=== PATIENT | male | born 1980 | race Caucasian/White ===

== ENCOUNTER 2021-02-28 11:56 | Emergency (ER) | payer BC ==
[2021-02-28] MEDS ORDERED: Ondansetron 4 MG/2 ML SDV IVPUSH ONE (12:15)
[2021-02-28] MEDS ORDERED: Sodium Chloride 0.9% 1,000 ML IV STA (12:15)
[2021-02-28] MEDS ORDERED: HYDROmorphone 0.5 MG/0.5 ML Syringe IVPUSH ONE ×2 (12:15→12:57)
--- NOTE | 2021-02-28 12:31 | EDM.PDOC ---
ED HPI GENERAL MEDICAL PROBLEM - General Chief Complaint: Gastrointestinal Problem Stated Complaint: CHOKED/ ABDOMINAL PAIN/VOMITING BLOOD Time Seen by Provider: 02/28/21 12:10 Source of Information: Reports: Patient, RN Notes Reviewed History Limitations: Reports: No Limitations - History of Present Illness INITIAL COMMENTS - FREE TEXT/NARRATIVE: Patient is a 41-year-old male presenting to the emergency department with complaints of epigastric pain as well as an episode of vomiting blood prior to arrival. He reports that he was eating a piece of bun and a "burnt" from bar [employer] when he had an episode of choking. States he coughed for approximately 30 minutes. He has been able to swallow liquids since the time of the occurrence. Reports that prior to coming to ER he had approximately "5 mouthfuls "of blood that he vomited up. He has had episodes of choking on dry food frequently but has never been evaluated for this. He often chokes if he eats bread or any othe r dry substance. Denies feeling nauseous at this time but does have intense epigastric discomfort. Epigastric Pain Score (Numeric/FACES): 8 - Related Data Allergies Allergy/AdvReac Type Severity Reaction Status Date / Time No Known Allergies Allergy Verified 02/28/21 12:06 Home Meds: Home Meds . [No Known Home Meds] 05/23/19 [History] Past Medical History - Past Health History Medical/Surgical History: Denies Medical/Surgical History Cardiovascular History: Reports: None Respiratory History: Reports: None Gastrointestinal History: Reports: None Genitourinary History: Reports: None Musculoskeletal History: Reports: Fracture Neurological History: Reports: None Psychiatric History: Reports: None Endocrine/Metabolic History: Reports: None Hematologic History: Reports: None Immunologic History: Reports: None Oncologic (Cancer) History: Reports: None Dermatologic History: Reports: None - Infectious Disease History Infectious Disease History: Reports: None - Past Surgical History Head Surgeries/Procedures: Reports: None HEENT Surgical History: Reports: Oral Surgery Musculoskeletal Surgical History: Reports: Arthroscopic Procedure Other Musculoskeletal Surgeries/Procedures:: Surgery on left knee to repair MCL/ACL and surgery to fix fractured left leg. Social & Family History - Tobacco Use Tobacco Use Status *Q: Never Tobacco User - Caffeine Use Caffeine Use: Reports: Coffee, Energy Drinks, Soda - Recreational Drug Use Recreational Drug Use: No ED ROS GENERAL - Review of Systems Review Of Systems: Comprehensive ROS is negative, except as noted in HPI. ED EXAM, GI/ABD - Physical Exam Exam: See Below Exam Limited By: No Limitations General Appearance: Alert, Mild Distress Respiratory/Chest: No Respiratory Distress, Lungs Clear, Normal Breath Sounds, No Accessory Muscle Use, Chest Non-Tender Cardiovascular: Normal Peripheral Pulses, Regular Rate, Rhythm, No Edema, No Gallop, No JVD, No Murmur, No Rub GI/Abdominal Exam: Normal Bowel Sounds, Soft, No Organomegaly, No Distention, No Abnormal Bruit, No Mass, Pelvis Stable, Tender (Mild epigastric) Neurological: Alert, Oriented, CN II-XII Intact, Normal Cognition, Normal Gait, Normal Reflexes, No Motor/Sensory Deficits Psychiatric: Normal Affect, Normal Mood Skin Exam: Warm, Dry, Intact, Normal Color, No Rash Course - Vital Signs Last Recorded V/S: Last Vital Signs Temp 98.2 F 02/28/21 12:04 Pulse 69 02/28/21 12:04 Resp 16 02/28/21 12:04 BP 139/96 H 02/28/21 12:04 Pulse Ox 96 02/28/21 12:04 - Orders/Labs/Meds Orders: Active Orders 24 hr Category Date Time Status Chest Abdomen Pelvis w Cont [CT] Stat Exams 02/28/21 12:14 Taken Sodium Chloride 0.9% [Normal Saline] 1,000 ml Med 02/28/21 12:15 Active IV NOW Medication Orders Sodium Chloride (Normal Saline) 1,000 mls @ 150 mls/hr IV NOW STA Stop: 02/28/21 18:54 Last Admin: 02/28/21 12:21 Dose: 150 mls/hr Documented by: PRICE Labs: Laboratory Tests 02/28/21 02/28/21 Range/Units 12:15 12:15 WBC 5.23 (4.23-9.07) K/mm3 RBC 4.86 (4.63-6.08) M/mm3 Hgb 14.8 (13.7-17.5) gm/dl Hct 43.8 (40.1-51.0) % MCV 90.1 (79.0-92.2) fl MCH 30.5 (25.7-32.2) pg MCHC 33.8 (32.2-35.5) g/dl RDW Std Deviation 40.8 (35.1-43.9) fL Plt Count 232 (163-337) K/mm3 MPV 10.4 (9.4-12.3) fl Neut % (Auto) 51.7 (34.0-67.9) % Lymph % (Auto) 37.1 (21.8-53.1) % Marion % (Auto) 7.5 (5.3-12.2) % Eos % (Auto) 2.7 (0.8-7.0) Baso % (Auto) 0.8 (0.1-1.2) % Neut # (Auto) 2.71 (1.78-5.38) K/mm3 Lymph # (Auto) 1.94 (1.32-3.57) K/mm3 Marion # (Auto) 0.39 (0.30-0.82) K/mm3 Eos # (Auto) 0.14 (0.04-0.54) K/mm3 Baso # (Auto) 0.04 (0.01-0.08) K/mm3 Sodium 141 (136-145) mEq/L Potassium 3.4 L (3.5-5.1) mEq/L Chloride 104 (98-107) mEq/L Carbon Dioxide 25 (21-32) mEq/L Anion Gap 15.4 H (5-15) BUN 12 (7-18) mg/dL Creatinine 1.2 (0.7-1.3) mg/dL Est Cr Clr Drug Dosing 87.15 mL/min Estimated GFR (MDRD) > 60 (>60) mL/min BUN/Creatinine Ratio 10.0 L (14-18) Glucose 107 H (70-99) mg/dL Calcium 8.5 (8.5-10.1) mg/dL Total Bilirubin 1.5 H (0.2-1.0) mg/dL AST 21 (15-37) U/L ALT 32 (16-63) U/L Alkaline Phosphatase 102 (46-116) U/L Total Protein 7.7 (6.4-8.2) g/dl Albumin 4.1 (3.4-5.0) g/dl Globulin 3.6 gm/dL Albumin/Globulin Ratio 1.1 (1-2) Meds: Medications Generic Name Dose Route Start Last Admin Trade Name Freq PRN Reason Stop Dose Admin Sodium Chloride 1,000 mls @ 150 mls/hr 02/28/21 12:15 02/28/21 12:21 Normal Saline IV 02/28/21 18:54 150 mls/hr NOW STA Administration Discontinued Medications Generic Name Dose Route Start Last Admin Trade Name Ceci PRN Reason Stop Dose Admin Al Hydroxide/Mg Hydroxide 30 0 ml 02/28/21 14:20 02/28/21 14:31 ml/ Lidocaine HCl 15 ml PO 02/28/21 14:21 45 ml ONETIME ONE Administration Famotidine 20 mg 02/28/21 14:20 02/28/21 14:30 Famotidine 20 Mg/2 Ml Sdv IVPUSH 02/28/21 14:21 20 mg ONETIME ONE Administration Hydromorphone HCl 0.5 mg 02/28/21 12:15 02/28/21 12:22 Hydromorphone 0.5 Mg/0.5 Ml Syringe IVPUSH 02/28/21 12:16 0.5 mg ONETIME ONE Administration Hydromorphone HCl 0.5 mg 02/28/21 12:57 02/28/21 13:09 Hydromorphone 0.5 Mg/0.5 Ml Syringe IVPUSH 02/28/21 12:58 0.5 mg ONETIME ONE Administration Ondansetron HCl 4 mg 02/28/21 12:15 02/28/21 12:21 Ondansetron 4 Mg/2 Ml Sdv IVPUSH 02/28/21 12:16 4 mg ONETIME ONE Administration - Re-Assessments/Exams Free Text/Narrative Re-Assessment/Exam: Patient is a 41-year-old male presenting to the emergency department for evaluation with regards to having what he describes as a choking episode with difficulty swallowing bread and the meat that he was eating. He reports that he has had episodes similar to this quite frequently. Likely every day however, this episode was much worse than normal. He reports that last about 30 minutes. Prior to come to ER he vomited up some blood. He now complains of feeling gassy and having epigastric discomfort. He is not on a PPI, however states that he has thought about it before he does report history of acid reflux when lying flat. He has never been evaluated for his difficulty swallowing. Exam is significant for epigastric tenderness but is otherwise unremarkable. I have ordered blood work, CT scan of the chest abdomen pelvis to ensure he does not have an esophageal perforation, IV fluids of NS at 150 mils per hour, Zofran 4 mg IV, and Dilaudid 0.5 mg IV. 02/28/21 14:30 CT scan of the chest abdomen pelvis shows diffuse thickening of the distal esophagus questionable for possible esophagitis. It is otherwise unremarkable. There is no evidence of esophageal perforation. Discussed that the bleeding that he had was likely related to the trauma of choking and that he may have Yolanda-Guallpa tears but that there is no evidence of esophageal perforation. He has had no further emesis during his time in ER. I have ordered a GI cocktail as well as Pepcid 20 mg IV. Recommended he begin taking omeprazole 20 mg daily. He should have it very bland diet for the next few days to allow the esophagus to heal. I will send a referral to general surgeon, Dr. eVliz, for evaluation and possible EGD. He is in agreement with this plan. Discharge instructions as documented. Departure - Departure Time of Disposition: 14:32 Disposition: Home, Self-Care 01 Condition: Good Clinical Impression: GERD with esophagitis Qualifiers: Esophagitis bleeding: unspecified whether hemorrhage Qualified Code(s): K21.00 - Gastro-esophageal reflux disease with esophagitis, without bleeding - Discharge Information *PRESCRIPTION DRUG MONITORING PROGRAM REVIEWED*: No *COPY OF PRESCRIPTION DRUG MONITORING REPORT IN PATIENT MIGUEL ANGEL: No Instructions: Food Choices for Gastroesophageal Reflux Disease, Adult, Gastroesophageal Reflux Disease, Adult, [id number] Referrals: Mina Veliz MD [Physician] - Forms: ED Department Discharge Additional Instructions: You were seen in the emergency department today for evaluation of epigastric pain after choking and having an episode of vomiting blood at home. Work-up included blood work and a CT scan of your chest abdomen pelvis. Blood work was found to be overall normal. CT scan showed thickening of your distal esophagus likely due to gastroesophageal reflux disease with esophagitis with esophagitis. There is no evidence of esophageal perforation. The bleeding that you had was likely due to the trauma of choking. While in the ER, you received IV fluids, nausea and pain medications, a GI cocktail, and pepcid. You should begin taking omeprazole 20 mg daily. Your diet for the next few days should be soft and bland. Avoid foods that are hard, spicy, or acidic. A referal has been sent to general surgeon, Dr. Veliz. Recommend that you contact his office on Monday to set up a follow-up appointment. If you should experience any new or worsening symptoms of concern, please do not hesitate to return to the emergency department for reevaluation. Sepsis Event Note (ED) - Evaluation Sepsis Screening Result: No Definite Risk - Focused Exam Vital Signs: Vital Signs Temp Pulse Resp BP Pulse Ox 02/28/21 12:04 98.2 F 69 16 139/96 H 96 - My Orders Last 24 Hours: My Active Orders 02/28/21 12:14 Chest Abdomen Pelvis w Cont [CT] Stat 02/28/21 12:15 Sodium Chloride 0.9% [Normal Saline] 1,000 ml IV NOW - Assessment/Plan Last 24 Hours: My Active Orders 02/28/21 12:14 Chest Abdomen Pelvis w Cont [CT] Stat 02/28/21 12:15 Sodium Chloride 0.9% [Normal Saline] 1,000 ml IV NOW
[2021-02-28] MEDS ORDERED: Alum Hydrox/Mag Hydrox/Simeth 30 ML, Lidocaine 2% 15 ML PO ONE ×2 (14:20)
[2021-02-28] MEDS ORDERED: Famotidine 20 MG/2 ML SDV IVPUSH ONE (14:20)
--- NOTE | 2021-03-01 08:16 | CT ---
CT chest Technique: Multiple axial sections were obtained from above the lung apices inferiorly through the lung bases. Intravenous contrast was utilized. Reconstructed coronal and sagittal images were obtained. Comparison: No prior chest imaging is available. Findings: Esophageal wall thickening is seen. Small hiatal hernia is noted. Findings most likely represent diffuse esophagitis. No pericardial thickening is seen. Thoracic aorta shows no aneurysm. Mediastinum and hilar regions show no adenopathy or mass. Lung window settings were reviewed which show no acute parenchymal change. Bone window settings were reviewed which show no acute osseous abnormality. Impression: 1. Findings suspicious for diffuse esophagitis as described above. 2. Other portions of the CT chest study are unremarkable. Diagnostic code #3 I agree with preliminary report from [facility], finalized on 02/28/21, 3:13 PM CDT, code 1 CT abdomen and pelvis Technique: Multiple axial sections were obtained from above the dome of the diaphragm inferiorly through the pubic symphysis. Intravenous contrast was utilized. Delayed images were also obtained through the bladder. Findings: Liver contains no focal abnormality. Spleen size is normal. Adrenal glands show no nodule. Pancreas shows no discrete abnormality. Adrenal glands show no nodule. Kidneys show symmetric contrast enhancement with no hydronephrosis or mass. Gallbladder contains no calcified gallstones. Abdominal aorta shows no aneurysm. No retroperitoneal adenopathy or mesenteric abnormalities are seen. Appendix is seen which is normal. No pelvic mass or adenopathy is appreciated. No free fluid or inflammatory change is seen. Delayed images show contrast within the distal right ureter and within the bladder. Bone window settings were reviewed which show minimal scattered degenerative change within the lumbar spine. No acute osseous abnormality is appreciated. Impression: 1. Nothing acute is seen on CT study of the abdomen and pelvis. Diagnostic code #1 I agree with preliminary report from [facility], finalized on 02/28/21, 3:13 PM CDT, code 1
== END 2021-02-28 14:54 | disposition home or self-care (01) ==
LOC: JD.ED 11:56
DX: K21.00 Gastro-esophageal reflux disease with esophagitis, without bleeding (principal)
CPT/HCPCS: 36415; 71260; 74177; 80053; 85025; 96374; 96375; 96376; 99285; A9270; J1170; J2405; J3490; J7030; 99284

== ENCOUNTER → 2021-03-25 | Day surgery (SDC) | payer BC ==
[~2021-03-25] MED LIST: Lactated Ringers 1,000 ML IV SCH; Lidocaine 1% 6 ML ONE; Lidocaine 1%/Sod Bicarbonate in NS 8.4% 1 ML Syringe IDERM PRN; Midazolam 1 MG/ML 2 ML SDV ONE; Propofol 200 MG/20 ML SDV ONE; Sodium Chloride 0.9% 10 ML Syringe FLUSH PRN
--- NOTE | 2021-03-25 06:17 | PCM.PREANE ---
Preanesthetic Assessment - Procedure Proposed Procedure: EGD - Anesthesia/Transfusion/Family Hx Anesthesia History: Prior Anesthesia Without Reaction Family History of Anesthesia Reaction: No Transfusion History: No Prior Transfusion(s) Intubation History: Unknown - Review of Systems General: No Symptoms Pulmonary: No Symptoms Cardiovascular: No Symptoms Gastrointestinal: Difficulty Swallowing Neurological: No Symptoms Other: Reports: None - Physical Assessment NPO Status Date: 03/24/21 NPO Status Time: 22:30 Vital Signs: 125/91 HR 68 RR 16 Sat 96 97.0 Height: 1.8 m Weight: 97.9 kg ASA Class: 2 Mental Status: Alert & Oriented x3 Dentition: Reports: Normal Dentition, Missing Tooth/Teeth, Caries Thyro-Mental Finger Breadths: 3 Mouth Opening Finger Breadths: 3 ROM/Head Extension: Full Lungs: Clear to Auscultation, Normal Respiratory Effort Cardiovascular: Regular Rate, Regular Rhythm - Allergies Allergies/Adverse Reactions: Allergies Allergy/AdvReac Type Severity Reaction Status Date / Time No Known Allergies Allergy Verified 03/24/21 16:44 - Blood Blood Available: No Product(s) Available: None - Anesthesia Plan Pre-Op Medication Ordered: None - Acknowledgements Anesthesia Type Planned: MAC Pt an Appropriate Candidate for the Planned Anesthesia: Yes Alternatives and Risks of Anesthesia Discussed w Pt/Guardian: Yes Pt/Guardian Understands and Agrees with Anesthesia Plan: Yes PreAnesthesia Questionnaire - Past Health History Medical/Surgical History: Denies Medical/Surgical History HEENT History: Reports: Impaired Vision Cardiovascular History: Reports: None Respiratory History: Reports: None Gastrointestinal History: Reports: Other (See Below) Other Gastrointestinal History: dysphagia, hematemesis Genitourinary History: Reports: None RIVET PASSER History: Reports: None Musculoskeletal History: Reports: Fracture Neurological History: Reports: None Psychiatric History: Reports: None Endocrine/Metabolic History: Reports: None Hematologic History: Reports: None Immunologic History: Reports: None Oncologic (Cancer) History: Reports: None Dermatologic History: Reports: None - Infectious Disease History Infectious Disease History: Reports: None - Past Surgical History Head Surgeries/Procedures: Reports: None HEENT Surgical History: Reports: Oral Surgery Cardiovascular Surgical History: Reports: None Respiratory Surgical History: Reports: None GI Surgical History: Reports: None Female Surgical History: Reports: None Male Surgical History: Reports: None Neurological Surgical History: Reports: None Musculoskeletal Surgical History: Reports: Arthroscopic Procedure, ORIF, Shoulder Surgery Other Musculoskeletal Surgeries/Procedures:: Surgery on left knee to repair MCL/ACL and surgery to fix fractured left leg. Oncologic Surgical History: Reports: None Dermatological Surgical History: Reports: None - SUBSTANCE USE Tobacco Use Status *Q: Current Every Day Tobacco User Tobacco Use Within Last Twelve Months: Snuff/Dip Second Hand Smoke Exposure: Yes Days Per Week of Alcohol Use: 1 Number of Drinks Per Day: 6 Total Drinks Per Week: 6 Date of Last Drink: 03/20/21 Time of Last Drink: 20:00 Recreational Drug Use History: No - HOME MEDS Home Medications: Home Meds Omeprazole Magnesium [Prilosec Otc] 20 mg PO DAILY 03/24/21 [History] - CURRENT (IN HOUSE) MEDS Current Meds: Current Medications Lactated Ringer's (Ringers, Lactated) 1,000 mls @ 125 mls/hr IV ASDIRECTED WES Stop: 03/25/21 23:00 Lidocaine/Sodium Bicarbonate (Lidocaine 1%/Sod Bicarbonate In Ns 8.4% 1 Ml Syringe) 0.25 ml IDERM ONETIME PRN PRN Reason: Prior to IV Start Stop: 03/25/21 18:00 Sodium Chloride (Sodium Chloride 0.9% 10 Ml Syringe) 10 ml FLUSH ASDIRECTED PRN PRN Reason: Keep Vein Open Stop: 03/25/21 18:00
--- NOTE | 2021-03-25 08:34 | PCM48HPAN ---
Post Anesthesia Note - EVALUATION WITHIN 48HRS OF ANESTHETIC Vital Signs in Normal Range: Yes Patient Participated in Evaluation: Yes Respiratory Function Stable: Yes Airway Patent: Yes Cardiovascular Function Stable: Yes Hydration Status Stable: Yes Pain Control Satisfactory: Yes Nausea and Vomiting Control Satisfactory: Yes Mental Status Recovered: Yes Vital Signs: 113/81 HR 77 Sat 96 RA 97.0 RR 16
[2021-03-25 09:37] VITALS: BP 125/91; PULSE 68
--- NOTE | 2021-03-25 09:52 | PCM.PRNOTE ---
- Free Text/Narrative Note: Date: 03/25/2021 Procedure: diagnostic esophagogastroduodenoscopy Indication: dysphagia, imaging findings suggesting reflux esophagitis Endoscopist: Mina Veliz MD Findings: Severe inflammatory changes in the distal esophagus. Sliding hiatal hernia. Detailed Report: The patient was taken to the endoscopy suite and placed in left lateral decubitus position. Timeout was performed and monitored anesthesia care was initiated. A bite-block was placed. The endoscope was inserted into the mouth and advanced to the distal duodenum with ease. On the way down with the scope, severe erosive esophagitis was noted in the distal aspect. The duodenum appeared normal; a biopsy of duodenal mucosa was obtained with cold forceps. The scope was withdrawn into the stomach. The antrum and pylorus appeared normal. A sample biopsy of antral mucosa was obtained with cold forceps. There was no gastric ulceration or gross evidence of inflammatory changes. On retroflexion, a sliding hiatal hernia was evident. The scope was withdrawn into the distal esophagus. There did not appear to be gross evidence of Shaver's metaplasia, but near the gastroesophageal junction was significant inflammatory change with mucosal erosions of the distal esophagus. Biopsies were obtained near the GE junction and from the distal esophagus. Air was suctioned from the stomach prior to withdrawal of the scope. The remainder of the esophagus proximally appeared fairly normal. The patient tolerated the procedure well.
== END | disposition home or self-care (01) ==
LOC: JD.SDS 07:12
PROVIDERS: ATTEND Surgery
DX: K22.10 Ulcer of esophagus without bleeding (principal); K44.9 Diaphragmatic hernia without obstruction or gangrene; K21.00 Gastro-esophageal reflux disease with esophagitis, without bleeding; F17.220 Nicotine dependence, chewing tobacco, uncomplicated; Z01.812 Encounter for preprocedural laboratory examination; Z20.822 Contact with and (suspected) exposure to COVID-19
CPT/HCPCS: 00731; J2250; J2704; U0002